=== PATIENT | male | born 1945 | race Caucasian/White ===

== ENCOUNTER 2024-11-30 00:38 | Emergency (ER) | payer MEDICARE, OTHER ==
[2024-11-30 01:11] LABS: #Basophils 0.03 10x3/uL (0.0-0.2); #Eosinophils 0.49 10x3/uL (0.0-0.5); #Monocytes 0.65 10x3/uL (0.0-1.1); #Neutrophils 4.33 10x3/uL (1.5-8.4); %Basophils 0.4 % (0.0-2.0); %Eosinophils 6.7 % (0.0-6.0); %Lymphocytes 24.6 % (18.0-47.0); %Monocytes 8.9 % (0.0-10.0); %Neutrophils 59.1 % (40.0-75.0); Hematocrit 39.0 % (38.8-50.0); Hemoglobin 12.8 g/dL (13.5-17.5); Mean Corpuscular Hemoglobin 31.8 pg (27.0-33.0); Mean Corpuscular Volume 97.0 fL (81.2-95.1); Platelet Count 182 10x3/uL (150-450); Red Blood Cell (RBC) Count 4.02 10x6/uL (4.32-5.72); White Blood Cell (WBC) Count 7.32 10x3/uL (3.5-10.5)
[2024-11-30 01:20] LABS: ALT (SGPT) Less than 4 U/L (Less than 45); AST (SGOT) 16 U/L (11-34); Albumin 4.1 g/dL (3.1-4.5); Alkaline Phosphatase 85 U/L (40-110); Anion Gap 14 mmol/L (10-20); BUN (Urea Nitrogen) 34 mg/dL (8.4-25.7); Bilirubin, Total 0.3 mg/dL (0.3-1.2); Calc. Creatinine Clearance 0 mL/min (70-130); Calcium 9.0 mg/dL (7.8-10.44); Carbon Dioxide 25 mmol/L (23-31); Chloride 107 mmol/L (98-107); Globulin 2.7 g/dL (2.4-3.5); Glucose 108 mg/dL (83-110); Lipase 11 U/L (8-78); Potassium 4.3 mmol/L (3.5-5.1); Sodium 142 mmol/L (136-145)
[2024-11-30 01:25] LABS: Troponin I 0.011 ng/mL (< 0.028)
[2024-11-30 02:42] LABS: Glucose, Urine (Dipstick) Normal (Negative); Leukocyte Negative (Negative); Protein, Urine (Dipstick) 15 mg/dl (Neg-Trace); Specific Gravity, Urine 1.020 (1.005-1.030)
[2024-11-30 02:58] LABS: Bacteria/HPF Rare-Few HPF (None Seen); CAUTI Indications for Culture Pelvic or flank pain; Mucous/LPF 2+ LPF (<2+); RBC/HPF 0-3 HPF (0-3); WBC/HPF 0-3 HPF (0-3)
[2024-11-30 02:59] LABS: Urine Culture Reflex No No
== END 2024-11-30 03:20 | disposition home or self-care (01) ==
LOC: EEVIPCON 00:38 → CSHERS 00:38
DX: I10 Essential (primary) hypertension (principal); E78.5 Hyperlipidemia, unspecified; F03.90 Unspecified dementia, unspecified severity, without behavioral disturbance, psychotic disturbance, mood disturbance, and anxiety; G20.A1 Parkinson's disease without dyskinesia, without mention of fluctuations; Z79.899 Other long term (current) drug therapy
CPT/HCPCS: 70450; 80053; 81001; 83690; 84484; 85025; 87428; 93005; 94760